=== PATIENT | female | born 1970 ===

== ENCOUNTER 2020-10-08 11:51 | Emergency (ER) | payer OTHER ==
[2020-10-08] MEDS ORDERED: PREDNISONE 20MG20 MG PO (16:00)
[2020-10-08] MEDS ORDERED: CYCLOBENZAPRINE10 MG PO (16:00)
== END 2020-10-08 16:10 | disposition home or self-care (01) ==
LOC: FER 11:51
DX: S33.5XXA Sprain of ligaments of lumbar spine, initial encounter (principal); S46.912A Strain of unspecified muscle, fascia and tendon at shoulder and upper arm level, left arm, initial encounter; M25.522 Pain in left elbow; I10 Essential (primary) hypertension; G35 Multiple sclerosis; Z85.72 Personal history of non-Hodgkin lymphomas; Z88.0 Allergy status to penicillin; Z88.5 Allergy status to narcotic agent; Z79.899 Other long term (current) drug therapy; V49.40XA Driver injured in collision with unspecified motor vehicles in traffic accident, initial encounter; Y92.009 Unspecified place in unspecified non-institutional (private) residence as the place of occurrence of the external cause
CPT/HCPCS: 71046; 72100; 73060; 73090; J1100